=== PATIENT | female | born 1965 | race Caucasian/White ===

== ENCOUNTER 2019-06-30 01:18 | Emergency (ER) | payer OTHER ==
[2019-06-30 02:07] VITALS: BP 165/89; PULSE 77; TEMP 98.3; BMI 57.4
--- NOTE | 2019-06-30 02:36 | PDOC ---
Attending Attestation - Resident Resident Name: Zaki Gutierrez - ED Attending Attestation I have performed the following: I have examined & evaluated the patient, The case was reviewed & discussed with the resident, I agree w/resident's findings & plan - HPI HPI: 06/30/19 05:23 Pt comes with JACKSON and CP and she has no PMHx. Her BP was elevated and she thinks it is because she barely sleeps, due to insomnia. 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 In the ER, pt's exam, vitals, labs, EKG all WNL. - Physicial Exam PE: 06/30/19 05:24 Agree with resident exam. Normal exam. Pt appears well and younger than stated age. - Medical Decision Making 06/30/19 03:04 CBC and INR are normal 06/30/19 05:25 Exam normal EKG normal and she will be sent home. Heart Score/ECG Review - ECG Intrepretation Rhythm: Regular Rhythm - Stirum Stirum: Normal - ST and T Early Repolarization: No Non Specific ST-T Wave changes: No Flattened T Waves: No Prolonged Q-T Interval: No - ECG Impressions Normal ECG: Yes Non-specific ST Elevation: No Ischemic Changes: No Bradycardia: No Torsades vernon Pointes: No WPW: No
[2019-06-30 02:48] LABS: BASO % 0.5 % (0-2.0); EOS % 1.3 % (0-4.5); HEMATOCRIT 42.8 % (32.4-45.2); HEMOGLOBIN 14.2 GM/dL (10.7-15.3); LYMPH % 30.5 % (8-40); MCH 30.9 pg (25.7-33.7); MCHC 33.1 g/dl (32.0-36.0); MEAN CELL VOLUME 93.5 fl (80-96); MEAN PLT VOLUME 7.6 fl (7.5-11.1); MONO % 6.1 % (3.8-10.2); NEUT % 61.6 % (42.8-82.8); PLATELET COUNT 330 K/MM3 (134-434); RBC 4.58 M/mm3 (3.60-5.2); RDW 12.7 % (11.6-15.6); WHITE BLOOD COUNT 6.7 K/mm3 (4.0-10.0)
[2019-06-30 03:01] LABS: INR 0.96 (0.83-1.09); PROTHROMBIN TIME (PATIENT) 11.3 SEC (9.7-13.0)
[2019-06-30 03:13] LABS: ALBUMIN 4.1 g/dl (3.4-5.0); BILIRUBIN,TOTAL 0.6 mg/dL (0.2-1); CALCIUM 9.7 mg/dL (8.5-10.1); CREATININE 0.8 mg/dL (0.55-1.3); POTASSIUM 4.4 mmol/L (3.5-5.1); TOT PROT 7.6 g/dl (6.4-8.2)
--- NOTE | 2019-06-30 03:20 | PDOC ---
History of Present Illness - General Chief Complaint: Chest Pain Stated Complaint: CHEST DISCOMFORT Time Seen by Provider: 06/30/19 02:24 History Source: Patient Exam Limitations: No Limitations - History of Present Illness Initial Comments: 06/30/19 04:14 Mckenzie Bonilla is a 54y previously healthy F presenting w headache. 6pm yesterday, had L parietal headache radiating to front, throbbing. Associated nausea, subsequent midsternal chest tightness lasting 15m. Did not take any meds. No head trauma. Denies fever, vision change, vomiting, SOB, AB pain, urinary/bowel changes. Past History - Past Medical History Allergies/Adverse Reactions: Allergies Allergy/AdvReac Type Severity Reaction Status Date / Time No Known Allergies Allergy Verified 06/30/19 02:07 Home Medications: Ambulatory Orders NK [No Known Home Medication] 06/30/19 - Suicide/Smoking/Psychosocial Hx Smoking History: Never smoked Review of Systems - Review of Systems Constitutional: No: Chills, Fever HEENTM: No: Eye Pain, Recent change in vision, Double Vision, Nose Pain, Nose Congestion, Throat Pain Respiratory: No: Cough, Shortness of Breath Cardiac (ROS): Yes: Chest Pain. No: Edema, Palpitations ABD/GI: Yes: Nausea. No: Abdominal Distended, Constipated, Diarrhea, Vomiting : No: Burning, Dysuria, Discharge, Flank Pain, Hematuria, Incontinence Musculoskeletal: No: Back Pain, Joint Pain, Muscle Pain, Muscle Weakness Integumentary: No: Bruising, Change in Color, Flushing, Lesions Neurological: Yes: Headache. No: Paresthesia, Seizure, Tingling Psychiatric: No: Anxiety, Depression Endocrine: No: Excessive Sweating, Flushing, Intolerance to Cold, Intolerance to Heat Hematologic/Lymphatic: No: Anemia, Blood Clots, Easy Bleeding *Physical Exam - Vital Signs Last Vital Signs Temp Pulse Resp BP Pulse Ox 98.3 F 77 18 165/89 98 06/30/19 02:00 06/30/19 02:00 06/30/19 02:00 06/30/19 02:00 06/30/19 02:54 - Physical Exam General Appearance: Yes: Nourished, Appropriately Dressed. No: Apparent Distress HEENT: positive: EOMI, SCOOTER, Normal Voice, Hearing Grossly Normal. negative: Scleral Icterus (R), Scleral Icterus (L), Rhinorrhea, Sinus Tenderness Respiratory/Chest: positive: Lungs Clear, Normal Breath Sounds. negative: Chest Tender, Respiratory Distress, Crackles, Rales, Rhonchi, Stridor, Wheezing Cardiovascular: positive: Regular Rhythm, Regular Rate, S1, S2. negative: Edema , Murmur Gastrointestinal/Abdominal: positive: Normal Bowel Sounds, Flat, Soft. negative : Tender, Organomegaly, Distended, Guarding, Rebound Integumentary: positive: Normal Color Neurologic: positive: manager surgery II-XII NML intact, Fully Oriented, Alert, Normal Mood/ Affect, Normal Response, Motor Strength 5/5, Responsive. negative: Sensory Deficit, Confused, Disoriented ED Treatment Course - LABORATORY CBC & Chemistry Diagram: 06/30/19 02:30 06/30/19 02:30 - ADDITIONAL ORDERS Additional order review: Laboratory Results 06/30/19 06/30/19 06/30/19 02:30 02:30 02:30 PT with INR 11.30 INR 0.96 Sodium 141 Potassium 4.4 Chloride 106 Carbon Dioxide 29 Anion Gap 6 L BUN 17.0 Creatinine 0.8 Est GFR (CKD-EPI)AfAm 97.55 Est GFR (CKD-EPI)NonAf 84.17 Random Glucose 99 Calcium 9.7 Total Bilirubin 0.6 AST 23 ALT 33 Alkaline Phosphatase 74 Creatine Kinase Troponin I Total Protein 7.6 Albumin 4.1 Lipase 234 06/30/19 02:30 PT with INR INR Sodium Potassium Chloride Carbon Dioxide Anion Gap BUN Creatinine Est GFR (CKD-EPI)AfAm Est GFR (CKD-EPI)NonAf Random Glucose Calcium Total Bilirubin AST ALT Alkaline Phosphatase Creatine Kinase 114 Troponin I < 0.02 Total Protein Albumin Lipase 06/30/19 02:30 RBC 4.58 MCV 93.5 MCHC 33.1 RDW 12.7 MPV 7.6 Neutrophils % 61.6 Lymphocytes % 30.5 Monocytes % 6.1 Eosinophils % 1.3 Basophils % 0.5 Medical Decision Making - Medical Decision Making 06/30/19 03:17 CBC CMP trop CXR EKG Mckenzie Bonilla is a 54y previously healthy F presenting w headache. Headache likely migraine. Headache and chest pain resolved in ED after given tylenol. ACS ruled out w normal EKG, CXR, neg trop. D/c home *DC/Admit/Observation/Transfer Diagnosis at time of Disposition: Headache Qualifiers: Headache type: unspecified Headache chronicity pattern: acute headache Intractability: not intractable Qualified Code(s): R51 - Headache Chest pain Qualifiers: Chest pain type: unspecified Qualified Code(s): R07.9 - Chest pain, unspecified - Discharge Dispostion Disposition: HOME Condition at time of disposition: Improved Decision to Admit order: No - Referrals Referrals: Wilder Gomez MD [Primary Care Provider] - - Patient Instructions Printed Discharge Instructions: DI for Headache - Post Discharge Activity Forms/Work/School Notes: Back to Work
--- NOTE | 2019-06-30 11:31 | EKG ---
Test Reason : Blood Pressure : / mmHG Vent. Rate : 071 BPM Atrial Rate : 071 BPM P-R Int : 140 ms QRS Dur : 086 ms QT Int : 396 ms P-R-T Axes : 028 036 044 degrees QTc Int : 430 ms NORMAL SINUS RHYTHM NORMAL ECG NO PREVIOUS ECGS AVAILABLE Confirmed by SHAYY JESSICA MD ([id number]) on 06/30/2019 11:31:09 AM Referred By: Confirmed By:SHAYY JESSICA MD
== END 2019-06-30 03:43 | disposition home or self-care (01) ==
LOC: JER 01:18
DX: R07.9 Chest pain, unspecified (principal)
CPT/HCPCS: 36415; 71045-TC-FY; 80053; 82550; 83690; 84484; 85025; 85610; 93005; 93010; 99284-25

== ENCOUNTER 2020-11-14 21:02 | Emergency (ER) | payer OTHER ==
[2020-11-14 21:29] VITALS: BP 136/82; PULSE 87; TEMP 97.8; BMI 27.1
[2020-11-14] MEDS ORDERED: SODIUM CHLORIDE 0.9% 500 ML INFUS.BAG IV ONE (22:24)
[2020-11-14] MEDS ORDERED: METOCLOPRAMIDE HCL INJECTION 10 MG/2 ML VIAL IVPUSH ONE (22:25)
[2020-11-14] MEDS ORDERED: METOCLOPRAMIDE HCL INJECTION 10 MG/2 ML VIAL ONE (22:31)
[2020-11-14 23:03] LABS: BASO % 0.3 % (0-2.0); HEMATOCRIT 42.6 % (32.4-45.2); HEMOGLOBIN 14.1 GM/dL (10.7-15.3); LYMPH % 22.3 % (8-40); MCH 30.8 pg (25.7-33.7); MCHC 33.1 g/dl (32.0-36.0); MEAN CELL VOLUME 92.9 fl (80-96); MEAN PLT VOLUME 7.9 fl (7.5-11.1); MONO % 13.7 % (3.8-10.2); NEUT % 63.7 % (42.8-82.8); PLATELET COUNT 219 K/MM3 (134-434); RBC 4.58 M/mm3 (3.60-5.2); RDW 12.7 % (11.6-15.6); WHITE BLOOD COUNT 5.2 K/mm3 (4.0-10.0)
[2020-11-14 23:29] LABS: ALBUMIN 3.7 g/dl (3.4-5.0); BLOOD UREA NITROGEN 11.4 mg/dL (7-18); CALCIUM 8.6 mg/dL (8.5-10.1)
[2020-11-14 23:32] LABS: CREATININE 0.8 mg/dL (0.55-1.3)
[2020-11-14 23:34] LABS: BILIRUBIN,TOTAL 0.8 mg/dL (0.2-1); TOT PROT 7.5 g/dl (6.4-8.2)
== END 2020-11-15 00:18 | disposition home or self-care (01) ==
LOC: JER 21:02
PROC: 3E033NZ Introduction of Analgesics, Hypnotics, Sedatives into Peripheral Vein, Percutaneous Approach (ICD-10-PCS; principal; 2020-11-14)
DX: R11.2 Nausea with vomiting, unspecified (principal); Z11.59 Encounter for screening for other viral diseases
CPT/HCPCS: 36415; 80053; 85025; 99284-25

== ENCOUNTER 2021-02-27 10:17 | Emergency (ER) | payer OTHER ==
[2021-02-27 10:37] VITALS: BP 151/89; PULSE 73; TEMP 97.4; BMI 27.4
[2021-02-27] MEDS ORDERED: ONDANSETRON 4 MG/2 ML VIAL IVPUSH ONE (10:41)
[2021-02-27] MEDS ORDERED: SODIUM CHLORIDE 1,000 ML IV STA (10:41)
[2021-02-27] MEDS ORDERED: ONDANSETRON 4 MG/2 ML VIAL ONE (10:56)
[2021-02-27] MEDS ORDERED: PANTOPRAZOLE SODIUM 40 MG VIAL IVPUSH ONE (11:03)
[2021-02-27] MEDS ORDERED: PANTOPRAZOLE SODIUM 40 MG VIAL ONE (11:14)
[2021-02-27 11:56] LABS: PH,URINE 7.5 (5.0-8.0); URINE APPEARANCE CLEAR; URINE BILIRUBIN NEGATIVE (NEGATIVE); URINE COLOR YELLOW; URINE GLUCOSE (UA) NEGATIVE (NEGATIVE); URINE KETONE NEGATIVE (NEGATIVE); URINE LEUK ESTERASE NEGATIVE (NEGATIVE); URINE NITRITE NEGATIVE (NEGATIVE); URINE PROTEIN NEGATIVE (NEGATIVE)
[2021-02-27 11:58] LABS: BASO % 0.4 % (0-2.0); EOS % 0.5 % (0-4.5); HEMATOCRIT 45.6 % (32.4-45.2); HEMOGLOBIN 15.5 GM/dL (10.7-15.3); LYMPH % 30.3 % (8-40); MCH 31.9 pg (25.7-33.7); MEAN CELL VOLUME 93.8 fl (80-96); MEAN PLT VOLUME 7.4 fl (7.5-11.1); MONO % 6.8 % (3.8-10.2); PLATELET COUNT 307 K/MM3 (134-434); RBC 4.87 M/mm3 (3.60-5.2); RDW 12.8 % (11.6-15.6); WHITE BLOOD COUNT 6.3 K/mm3 (4.0-10.0)
[2021-02-27 12:11] LABS: CALCIUM 10.2 mg/dL (8.5-10.1)
[2021-02-27 12:12] LABS: ALBUMIN 4.3 g/dl (3.4-5.0); BLOOD UREA NITROGEN 13.9 mg/dL (7-18); MAGNESIUM 2.4 mg/dL (1.8-2.4)
[2021-02-27 12:15] LABS: CREATININE 0.8 mg/dL (0.55-1.3)
== END 2021-02-27 13:01 | disposition home or self-care (01) ==
LOC: JER 10:17
PROC: 3E033NZ Introduction of Analgesics, Hypnotics, Sedatives into Peripheral Vein, Percutaneous Approach (ICD-10-PCS; principal; 2021-02-27)
PROC: 3E033GC Introduction of Other Therapeutic Substance into Peripheral Vein, Percutaneous Approach (ICD-10-PCS; 2021-02-27)
PROC: 3E0337Z Introduction of Electrolytic and Water Balance Substance into Peripheral Vein, Percutaneous Approach (ICD-10-PCS; 2021-02-27)
DX: R11.2 Nausea with vomiting, unspecified (principal); R19.7 Diarrhea, unspecified
CPT/HCPCS: 36415; 80053; 81003; 83690; 83735; 85025; 87086; 99285-25

== ENCOUNTER 2024-09-21 11:55 | Emergency (ER) | payer OTHER ==
[2024-09-21 12:08] VITALS: BP 148/84; PULSE 70; RESP 16; TEMP 97.8; BMI 27.1
[2024-09-21 13:05] LABS: BASO % 0.6 % (0-2.0); EOS % 1.2 % (0-4.5); HEMATOCRIT 42.3 % (32.4-45.2); HEMOGLOBIN 14.3 GM/dL (10.7-15.3); LYMPH % 30.8 % (8-40); MCH 31.2 pg (25.7-33.7); MCHC 33.8 g/dl (32.0-36.0); MEAN CELL VOLUME 92.1 fl (80-96); MEAN PLT VOLUME 6.9 fl (7.5-11.1); NEUT % 60.4 % (42.8-82.8); PLATELET COUNT 351 10^3/uL (134-434); RBC 4.59 M/mm3 (3.60-5.2); RDW 12.9 % (11.6-15.6)
[2024-09-21 13:11] LABS: URINE APPEARANCE CLEAR; URINE BILIRUBIN NEGATIVE (NEGATIVE); URINE COLOR YELLOW; URINE GLUCOSE (UA) NEGATIVE (NEGATIVE); URINE KETONE NEGATIVE (NEGATIVE); URINE LEUK ESTERASE NEGATIVE (NEGATIVE); URINE NITRITE NEGATIVE (NEGATIVE); URINE PROTEIN NEGATIVE (NEGATIVE); URINE UROBILINOGEN 0.2 mg/dL (0.2-1.0)
[2024-09-21 13:21] LABS: POTASSIUM 4.3 mmol/L (3.5-5.1)
[2024-09-21 13:23] LABS: CALCIUM 9.8 mg/dL (8.5-10.1)
[2024-09-21 13:24] LABS: ALBUMIN 3.9 g/dl (3.4-5.0); BLOOD UREA NITROGEN 18.7 mg/dL (7-18)
[2024-09-21 13:27] LABS: CREATININE 0.8 mg/dL (0.55-1.3)
[2024-09-21 13:28] LABS: BILIRUBIN,TOTAL 0.9 mg/dL (0.2-1); TOT PROT 7.4 g/dl (6.4-8.2)
[2024-09-21 14:21] LABS: HIV INTERPRETATION NEGATIVE (NEGATIVE)
== END 2024-09-21 19:14 | disposition home or self-care (01) ==
LOC: JER 11:55
DX: R10.31 Right lower quadrant pain (principal); R11.0 Nausea
CPT/HCPCS: 36415; 74177-TC; 80053; 81003; 85025; 86803; 87086; 87389; 99285-25